=== PATIENT | female | born 1980 | race Caucasian/White ===

== ENCOUNTER 2024-10-03 16:39 | Emergency (ER) | payer OTHER, SELFPAY ==
[2024-10-03] VITALS (14 sets, daily range): BP systolic 130–131; BP diastolic 68–81; PULSE 66–77; TEMP 36.4; O2SAT 98–99; BMI 27.4
--- NOTE | 2024-10-03 17:00 | ECG_ITS ---
[facility] Test Date: 2024-10-03 Pat Name: KAZ CODY Department: Room: - Gender: Female [employer]: ARNOL: 1980 Requested By: Order Number: [id number] Reading MD: KENNY FIERRO Measurements Intervals [place] Rate: 63 P: 39 [place]: 150 QRS: 61 QRSD: 84 T: 48 QT: 414 QTc: 422 Interpretive Statements 1100 Sinus rhythm 9110 normal ECG No previous ECG available for comparison Electronically Signed On 10-04-2024 17:51:41 EDT by KENNY FIERRO
--- NOTE | 2024-10-03 17:02 | ED.GENADUL1 ---
HPI HPI - General Adult General Chief complaint: Back Pain/Injury Stated complaint: DIZZY LOWER BACK PAIN Time Seen by Provider: 10/03/24 16:52 Source: patient Mode of arrival: walk-in Limitations: no limitations History of Present Illness HPI narrative: The patient is a 43-year-old female with history of liver cirrhosis that was not secondary to drug use that started almost more than 2 weeks ago when she was admitted to another facility, mentioned that she was admitted for management of her liver cirrhosis and discharged 2 weeks ago, almost 3 to 4 days ago the patient noticed that she has been having some pressure in her suprapubic area and frequency as well as smell to her urine Patient also has been noticing that her balance is off sometimes mostly when she stands up and walk But she does not have any weakness numbness tingling in her upper or lower extremities and the patient does not have any headache or any nausea or vomiting The patient does not have any alcohol drug use for the last 2 weeks at least Related Data Home Medications ?Medication ?Instructions ?Recorded ?Confirmed buprenorphine 8 mg-naloxone 2 mg 1 tab sublingual TID 10/03/24 10/03/24 sublingual tablet clonidine HCl 0.1 mg tablet 0.1 mg PO TID 10/03/24 10/03/24 escitalopram oxalate 20 mg tablet 20 mg PO DAILY 10/03/24 10/03/24 furosemide 40 mg tablet 40 mg PO DAILY 10/03/24 10/03/24 gabapentin 600 mg tablet 600 mg PO TID PRN anxiety 10/03/24 10/03/24 magnesium oxide 400 mg (241.3 mg 400 mg PO DAILY 10/03/24 10/03/24 magnesium) tablet melatonin 5 mg tablet 5 mg PO BEDTIME PRN sleep 10/03/24 10/03/24 nicotine (polacrilex) 2 mg buccal 2 mg buccal Q3H PRN nicotine 10/03/24 10/03/24 mini lozenge cravings nystatin 100,000 unit/mL oral 1 ml PO DAILY 10/03/24 10/03/24 suspension ondansetron 4 mg disintegrating 4 mg PO Q6H PRN nausea and vomiting 10/03/24 10/03/24 tablet Previous Rx's ?Medication ?Instructions ?Recorded cephalexin 500 mg capsule 500 mg PO Q8H 7 days #21 caps 10/03/24 lactulose 10 gram/15 mL oral 30 g (45 mL) PO Q6H #0 mL 10/03/24 solution miconazole nitrate 200 mg-2 % (9 1 applic vaginal DAILY 7 days #1 ea 10/03/24 gram) vaginal kit Allergies Allergy/AdvReac Type Severity Reaction Status Date / Time acetaminophen (From Tylenol) Allergy Severe Abdominal Verified 10/03/24 16:44 Pain Review of Systems ROS Status of ROS 10 or more systems reviewed and unremarkable except as noted in history and below PFSH PFSH Social History Little interest or pleasure in doing things: not at all Feeling down, depressed, or hopeless: not at all Exam Constitutional Vital Signs, click to edit/add: Last Vital Signs Temp 97.5 F L 10/03/24 16:44 Pulse 72 10/03/24 18:40 Resp 16 10/03/24 18:40 BP 131/68 10/03/24 16:45 Pulse Ox 98 10/03/24 16:44 Course Vital Signs Vital signs: Vital Signs Temperature 97.5 F L 10/03/24 16:44 Pulse Rate 72 10/03/24 16:44 Respiratory Rate 18 10/03/24 16:44 Blood Pressure 131/68 10/03/24 16:44 Pulse Oximetry 98 10/03/24 16:44 Temperature 97.5 F L 10/03/24 16:44 Pulse Rate 72 10/03/24 18:40 Respiratory Rate 16 10/03/24 18:40 Blood Pressure 131/68 10/03/24 16:45 Pulse Oximetry 98 10/03/24 16:44 Medical Decision Making [facility] Narrative Medical decision making narrative: The patient EKG showing sinus rhythm with a heart rate of [address] elevation or depression The patient CBC shows no leukocytosis Urine is positive for UTI Lactic acid not elevated the chemistry showing a normal kidney function I did measure the patient ammonia but clinically she does not seem to be having ongoing acute encephalopathy but her dizziness could be secondary to the dehydration as she has been having 40 g of lactulose 4 times a day with diarrhea The patient instructed to decrease her lactulose from 40 g to 30 g and to make sure that she will have 3 bowel movement daily and not to get dehydrated from all the diarrhea Patient was provided with IV fluid in the ER 1 L after which she was feeling better and she provided with food here with no difficulty eating or drinking The patient friend at the bedside who is her neighbor was instructed about monitoring in case of any decreased level of consciousness she is almost to come back to the ER The patient also to continue hydration and was provided with ceftriaxone discharged home with Keflex Patient had strict instruction to monitor his symptoms for the next 24 hours in case of any new symptoms she is to come back to the ER Patient also provided with Monistat for yeast vaginal infection prophylaxis The patient is to follow up with primary care physician in next 2-3 days or to return to the emergency department should any of the signs or symptoms worsen or new symptoms develop. The patient agrees with the following Diagnosis and Treatment plan and the patient will be discharged home. Lab Data Labs: Lab Results 10/03/24 10/03/24 Range/Units 17:14 17:24 WBC 6.1 (4.0-11.0) 10^3/uL RBC 3.98 L (4.20-5.40) 10^6/uL Hgb 12.3 (12.0-16.0) g/dL Hct 34.7 L (36.0-48.0) % MCV 87.2 (81.0-99.0) fL MCH 30.9 (26.7-34.0) pg MCHC 35.4 H (29.9-35.2) g/dL RDW 12.4 (11.0-15.0) % Plt Count 120 L (150-450) 10^3/uL MPV 12.3 (9.5-13.5) fL Neut % (Auto) 44.5 (43.0-75.0) % Lymph % (Auto) 39.2 (20.5-60.0) % [place] % (Auto) 10.6 (1.7-12.0) % Eos % (Auto) 5.1 (0.9-7.0) % Baso % (Auto) 0.3 (0.2-2.0) % Neut # (Auto) 2.7 (1.4-6.5) 10^3/uL Lymph # (Auto) 2.4 (1.2-3.8) 10^3/uL [place] # (Auto) 0.6 (0.3-0.8) 10^3/uL Eos # (Auto) 0.3 (0.0-0.7) 10^3/uL Baso # (Auto) 0.0 (0.0-0.1) 10^3/uL Abs Immat Gran (auto) 0.02 (0.00-0.03) 10^3/uL Imm/Tot Granulo (auto) 0.3 (0.0-0.5) % Sodium 140 (136-145) mmol/L Potassium 3.8 (3.5-5.1) mmol/L Chloride 104 (98-107) mmol/L Carbon Dioxide 28.4 (21.0-32.0) mmol/L Anion Gap 11.4 BUN 4.0 L (7.0-18.0) mg/dL Creatinine 0.53 L (0.55-1.02) mg/dL Est GFR ( Amer) >60 (>=60 mL/min/1.73m^2) Est GFR (Non-Af Amer) >60 (>=60 mL/min/1.73m^2) BUN/Creatinine Ratio 7.5 Glucose 127 H (74-106) mg/dL Lactate 1.1 (0.4-2.0) mmol/L Calcium 9.3 (8.5-10.1) mg/dL Total Bilirubin 0.5 (0.2-1.0) mg/dL AST 43 H (15-37) U/L ALT 36 (14-59) U/L Alkaline Phosphatase 56 (46-116) U/L Ammonia 36 H (11-32) umol/L Troponin I High Sens <4.0 L (4.0-51.3) pg/mL Total Protein 7.4 (6.4-8.2) g/dL Albumin 3.6 (3.4-5.0) g/dL Globulin 3.8 g/dL Albumin/Globulin Ratio 0.9 Serum HCG, Qual Negative (NEGATIVE) Urine Color Yellow (YELLOW) Urine Clarity Sl cloudy (CLEAR) Urine pH 6.0 (5.0-9.0) Ur Specific [place] 1.010 (1.005-1.025) Urine Protein 30 A (NEG/TRACE) mg/dL Urine Glucose (UA) Negative (NEGATIVE) mg/dL Urine Ketones Negative (NEGATIVE) mg/dL Urine Occult Blood Moderate A (NEGATIVE) Urine Nitrite Positive A (NEGATIVE) Urine Bilirubin Negative (NEGATIVE) Urine Urobilinogen >=8.0 (0.2-1.0) EU/dL Ur Leukocyte Esterase Large A (NEGATIVE) Urine RBC 2-5 A (0-2) #/HPF Urine WBC 50-75 A (NONE SEEN) #/HPF Ur Squamous Epith Cells Few A (NONE/RARE) #/LPF Urine Crystals None seen (None Seen) #/HPF Urine Bacteria Large A (NONE SEEN) #/HPF Urine Casts None seen (NONE SEEN) #/LPF Urine Mucus None seen (NONE SEEN) Ur [place] [place] Dis[place] Chief Complaint: Back Pain/Injury Clinical Impression: Dehydration, UTI (urinary tract infection) Patient Disposition: Home, Self-Care Time of Disposition Decision: 18:45 Condition: Good Prescriptions / Home Meds: New cephalexin 500 mg capsule 500 mg PO Q8H 7 Days Qty: 21 0RF miconazole nitrate 200 mg- 2 % (9 gram) kit 1 applic vaginal DAILY 7 Days Qty: 1 0RF Rx Instructions: as topical cream Changed lactulose 10 gram/15 mL solution 30 g PO Q6H Qty: 0 0RF Rx Instructions: please adjust the dose to have 3 bowel movement daily No Action buprenorphine-naloxone 8-2 mg tablet, sublingual 1 tab SUBLINGUAL TID clonidine HCl 0.1 mg tablet 0.1 mg PO TID escitalopram oxalate 20 mg tablet 20 mg PO DAILY furosemide 40 mg tablet 40 mg PO DAILY gabapentin 600 mg tablet 600 mg PO TID PRN (Reason: anxiety) magnesium oxide 400 mg (241.3 mg magnesium) tablet 400 mg PO DAILY melatonin 5 mg tablet 5 mg PO BEDTIME PRN (Reason: sleep) nicotine (polacrilex) 2 mg mini lozenge 2 mg buccal Q3H PRN (Reason: nicotine cravings) nystatin 100,000 unit/mL suspension 1 ml PO DAILY ondansetron 4 mg tablet,disintegrating 4 mg PO Q6H PRN (Reason: nausea and vomiting) Print Language: [place] Instructions: Lactulose (By mouth), Dehydration (DC), Urinary Tract Infection in Women (DC) Referrals: Physician,Non-Staff, MD [Primary Care Provider] - 1 week
[2024-10-03 17:31] LABS: Hematocrit 34.7 % (36.0-48.0); Hemoglobin 12.3 g/dL (12.0-16.0); Immature Granulocytes Abs Auto 0.02 10^3/uL (0.00-0.03); Immature Granulocytes Pct Auto 0.3 % (0.0-0.5); Lymphocytes Absolute Auto 2.4 10^3/uL (1.2-3.8); Mean Corpuscular HGB Conc 35.4 g/dL (29.9-35.2); Mean Corpuscular Hemoglobin 30.9 pg (26.7-34.0); Mean Corpuscular Volume 87.2 fL (81.0-99.0); Platelet Count 120 10^3/uL (150-450); Red Blood Count 3.98 10^6/uL (4.20-5.40); White Blood Count 6.1 10^3/uL (4.0-11.0)
[2024-10-03 17:32] LABS: Glucose Urine UA NEGATIVE (NEGATIVE)
[2024-10-03 17:46] LABS: Ammonia 36 umol/L (11-32)
[2024-10-03 17:48] LABS: Urine Culture Indicated YES-FRMC
[2024-10-03 17:50] LABS: Alanine Aminotransferase 36 U/L (14-59); Albumin Globulin Ratio 0.9; Albumin Level 3.6 g/dL (3.4-5.0); Alkaline Phosphatase 56 U/L (46-116); Anion Gap 11.4; Aspartate Amino Transferase 43 U/L (15-37); Blood Urea Nitrogen 4.0 mg/dL (7.0-18.0); Calcium 9.3 mg/dL (8.5-10.1); Carbon Dioxide 28.4 mmol/L (21.0-32.0); Chloride 104 mmol/L (98-107); Estimated GFR (African America >60 (>=60 mL/min/1.73m^2); Estimated GFR (Non-African Ame >60 (>=60 mL/min/1.73m^2); Globulin 3.8 g/dL; Glucose 127 mg/dL (74-106); Potassium 3.8 mmol/L (3.5-5.1); Sodium 140 mmol/L (136-145); Total Protein 7.4 g/dL (6.4-8.2)
[2024-10-03 17:59] LABS: Cast Seen? NONE SEEN #/LPF (NONE SEEN); Crystals Seen? None Seen #/HPF (None Seen)
[2024-10-03] MEDS: 0.9 % SODIUM CHLORIDE 1,000 ML 500 ML IV (18:12)
[2024-10-03 18:16] LABS: Lactate/Lactic Acid 1.1 mmol/L (0.4-2.0)
== END 2024-10-03 19:08 | disposition home or self-care (01) ==
PROVIDERS: Emergency Provider Emergency Medicine
DX: E86.0 Dehydration (principal); N39.0 Urinary tract infection, site not specified; K74.60 Unspecified cirrhosis of liver
CPT/HCPCS: 36415; 80053; 81001; 82140; 83605; 84484; 84703; 85025; 87086; 87088; 87186; 93005; 96365; 99285; J0696